=== PATIENT | female | born 1985 | race Caucasian/White ===

== ENCOUNTER 2023-03-26 18:04 | Emergency (ER) | payer MEDICAID, SELFPAY ==
[2023-03-26] VITALS (22 sets, daily range): BP systolic 90–118; BP diastolic 40–71; PULSE 55–77; RESP 6–24; TEMP 36.8; O2SAT 97–100
--- NOTE | 2023-03-26 18:15 | RT.EKG_ITS ---
APPROVED REPORT Exam: Resting ECG Reason for Exam: right arm pain/tingling Patient Location: E HR:63 bpm ECG Measurements Heart Rate 63 AXIS WY 137 P 46 QRSd 81 QRS 56 QT 427 T 50 QTc 439 Conclusion Sinus rhythm...normal P axis, V-rate 60- 99 sinus rhythm, normal axis, normal intervals non ischemic
--- NOTE | 2023-03-26 18:30 | DI.RAD_ITS ---
Exam(s) XR CHEST 2V PA LATERAL EXAM: XR CHEST 2V PA LATERAL CLINICAL HISTORY: chest pain, sob. TECHNIQUE: 2D digital imaging was performed. COMPARISON: No exams were available for comparison FINDINGS: 2 views: Heart size is normal. The mediastinum is not widened. Lungs are clear. No infiltrates nor pleural effusions. Thoracic scoliosis noted. IMPRESSION: No acute pulmonary findings. DATA REPOSITORY: RADIATION DOSE DELIVERED:
--- NOTE | 2023-03-26 18:44 | ED.GENADUL_ITS ---
Discharge Plan Disposition Patient Disposition: Home Condition: Stable Discharge Details Clinical Impression: Chest pain, non-cardiac Primary Care Provider: None,None ED Provider: Keren Schilling Home Meds and New Rx's Prescriptions: Continued ibuprofen 600 mg Tablet 600 mg PRN (Reason: Pain) Discharge Instructions Instructions: Chest Pain (ED), Hypokalemia (ED) Referrals: None,None [Primary Care Provider] - (Follow-up with your primary care provider) Discharge Data Discharge Date/Time-TO BE ENTERED AT DEPARTURE: 03/26/23 20:57 Medical Decision Making EKG obtained no acute ST segment changes symptoms do not seem consistent with ACS but will obtain routine lab including CBC CMP troponin and D-dimer. Her vital signs are stable we will give her aspirin 325 to chew and Toradol 30 mg IV push both for pain Labs reviewed symptoms improved she remains hemodynamically stable her chest pain is unlikely cardiac she should follow-up with primary care provider outpatient for further evaluation if needed Medical Records Medical records reviewed: Yes I reviewed the patient's medical records. Imaging Data Radiologic Study: Imaging: X-Ray (chest) Lab Data Lab results reviewed: Yes I reviewed the patient's lab results. Labs: Laboratory Tests Range/Units 03/26/23 03/26/23 03/26/23 18:50 18:50 18:50 WBC (4.4-10.8) 10^3/uL 7.39 RBC (3.93-5.22) 10^6/uL 4.36 Hgb (11.2-15.7) g/dL 12.2 Hct (36.0-46.0) % 38.4 MCV (80-95) fL 88 MCH (27.0-33.0) pg 28.0 MCHC (32.0-36.0) % 31.8 L RDW (11.7-14.6) % 13.3 Plt Count (130-400) 10^3/uL 269 MPV (8.0-11.0) fL 10.0 Immature Gran % 0.3 Neutrophils % 59.5 Lymphocytes % 28.7 Monocytes % 7.6 Eosinophils % 3.4 Basophils % 0.5 Nucleated RBC % (0.0-0.3) % 0.0 Absolute Neutrophils (1.2-6.7) 10^3/uL 4.40 Absolute Lymphocytes (1.2-3.4) 10^3/uL 2.12 Absolute Monocytes (0.1-0.8) 10^3/uL 0.56 Absolute Eosinophils (0.0-0.7) 10^3/uL 0.25 Absolute Basophils (0.0-0.2) 10^3/uL 0.04 D-Dimer Cancelled Sodium (136-145) mmol/L 142 Potassium (3.5-5.1) mmol/L 3.4 L Chloride (98-107) mmol/L 104 Carbon Dioxide (21.0-32.0) mmol/L 28.6 Anion Gap (3-11) mmol/L 9.4 BUN (7-18) mg/dL 13 Creatinine (0.55-1.02) mg/dL 0.9 Est GFR (CKD-EPI 2020) (mL/min/1.73m2) 83.40 Glucose (74-106) mg/dL 85 Calcium (8.5-10.1) mg/dL 8.9 Magnesium (1.8-2.4) mg/dL Total Bilirubin (0.2-1.0) mg/dL 0.3 AST (15-37) U/L 12 L ALT (14-59) U/L 15 Alkaline Phosphatase (46-116) U/L 64 Troponin I (<or=60) ng/L < 50 Total Protein (6.4-8.2) g/dL 7.9 Albumin (3.4-5.0) g/dL 3.9 Range/Units 03/26/23 03/26/23 18:50 19:10 WBC (4.4-10.8) 10^3/uL RBC (3.93-5.22) 10^6/uL Hgb (11.2-15.7) g/dL Hct (36.0-46.0) % MCV (80-95) fL MCH (27.0-33.0) pg MCHC (32.0-36.0) % RDW (11.7-14.6) % Plt Count (130-400) 10^3/uL MPV (8.0-11.0) fL Immature Gran % Neutrophils % Lymphocytes % Monocytes % Eosinophils % Basophils % Nucleated RBC % (0.0-0.3) % Absolute Neutrophils (1.2-6.7) 10^3/uL Absolute Lymphocytes (1.2-3.4) 10^3/uL Absolute Monocytes (0.1-0.8) 10^3/uL Absolute Eosinophils (0.0-0.7) 10^3/uL Absolute Basophils (0.0-0.2) 10^3/uL D-Dimer 352 Sodium (136-145) mmol/L Potassium (3.5-5.1) mmol/L Chloride (98-107) mmol/L Carbon Dioxide (21.0-32.0) mmol/L Anion Gap (3-11) mmol/L BUN (7-18) mg/dL Creatinine (0.55-1.02) mg/dL Est GFR (CKD-EPI 2020) (mL/min/1.73m2) Glucose (74-106) mg/dL Calcium (8.5-10.1) mg/dL Magnesium (1.8-2.4) mg/dL 2.1 Total Bilirubin (0.2-1.0) mg/dL AST (15-37) U/L ALT (14-59) U/L Alkaline Phosphatase (46-116) U/L Troponin I (<or=60) ng/L Total Protein (6.4-8.2) g/dL Albumin (3.4-5.0) g/dL ECG Data Attestation: I personally reviewed and interpreted this ECG (s) as follows: (NSR, no acute st segment changes) HPI General Mode of arrival: ambulatory . Date/Time Provider Initiated Documentation: 03/26/23 18:28 . Limitations to Documentation: no limitations . Information obtained by: patient . HPI Narrative: Presents with complaints of substernal chest pain with left arm numbness and tingling. Denies any similar history. No aggravating or alleviating factors. Did try ibuprofen this morning but mostly for complaints of a headache. States she does not feel it helped her symptoms. Does say she has been having a lot of stress. Related Data Home Medications Medication Instructions Recorded Confirmed ibuprofen 600 mg tablet 600 mg PRN Pain 03/26/23 Allergies Allergy/AdvReac Type Severity Reaction Status Date / Time codeine Allergy Mild Nausea Verified 03/26/23 18:32 General Stated Complaint: Chest Pain MICKY: 3 Review of Systems All systems reviewed & are unremarkable except as noted in HPI and below PFSH All Active Problems (Updated 03/26/23 @ 20:27 by Keren Schilling NP) Chest pain, non-cardiac (Acute) Social History Smoking/Tobacco Use Status: Never Smoking risk assessment performed?: Yes Alcohol Intake: current Alcohol Intake frequency: holidays/special occasions only Alcohol type: hard liquor Drug use: Never Substance use type: does not use Housing: house Do you feel safe at home: Yes Do you feel safe in your relationship?: Yes Course Vital Signs Vital signs: Vital Signs Temperature 36.8 C 03/26/23 18:08 Pulse 77 03/26/23 18:08 Respiratory Rate 18 03/26/23 18:08 Blood Pressure 114/71 03/26/23 18:08 Pulse Oximetry 100 03/26/23 18:08 Temperature 36.8 C 03/26/23 18:08 Temperature Source Tympanic 03/26/23 18:08 Pulse 77 03/26/23 18:08 Respiratory Rate 18 03/26/23 18:08 Blood Pressure 114/71 03/26/23 18:08 Blood Pressure Position Sitting 03/26/23 18:08 Pulse Oximetry 100 03/26/23 18:08 Oxygen Delivery Method Room Air 03/26/23 18:08 Oxygen Flow Rate 0 03/26/23 18:08
[2023-03-26] MEDS: Aspirin 81 MG CHEW 324 MG CH (18:46)
[2023-03-26] MEDS: Ketorolac 30 MG/ML VIAL IVP (18:47)
[2023-03-26 18:56] LABS: Abs Immature Grans 0.02 10^3/uL (0.0-0.06); Absolute Basophil Count 0.04 10^3/uL (0.0-0.2); Absolute Eosinophil Count 0.25 10^3/uL (0.0-0.7); Absolute Lymphocyte Count 2.12 10^3/uL (1.2-3.4); Absolute Monocyte Count 0.56 10^3/uL (0.1-0.8); Basophils % 0.5; Eosinophils % 3.4; HCT 38.4 % (36.0-46.0); HGB 12.2 g/dL (11.2-15.7); Immature Grans % 0.3; Lymphocytes % 28.7; MCHC 31.8 % (32.0-36.0); MCV 88 fL (80-95); Monocytes % 7.6; Neutrophils % 59.5; Platelet Count 269 10^3/uL (130-400); RBC 4.36 10^6/uL (3.93-5.22); RDW 13.3 % (11.7-14.6); RDW-SD 43.5 fL; WBC 7.39 10^3/uL (4.4-10.8)
[2023-03-26 19:17] LABS: ALT 15 U/L (14-59); AST 12 U/L (15-37); Albumin 3.9 g/dL (3.4-5.0); Alkaline Phosphatase 64 U/L (46-116); Anion Gap 9.4 mmol/L (3-11); BUN 13 mg/dL (7-18); Bilirubin, Total 0.3 mg/dL (0.2-1.0); CO2 28.6 mmol/L (21.0-32.0); CREATININE 0.9 mg/dL (0.55-1.02); Calcium 8.9 mg/dL (8.5-10.1); Chloride 104 mmol/L (98-107); Glucose 85 mg/dL (74-106); Potassium 3.4 mmol/L (3.5-5.1); Sodium 142 mmol/L (136-145); Total Protein 7.9 g/dL (6.4-8.2); Troponin I < 50 ng/L (<or=60)
[2023-03-26] MEDS: Potassium Chloride 20 MEQ TABCR 40 MEQ PO (19:35)
--- NOTE | 2023-03-26 19:49 | DI.VRAD_ITS ---
PROCEDURE INFORMATION: Exam: XR Chest Exam date and time: 03/26/2023 7:20 PM Age: 38 years old Clinical indication: Other: Chest pain and shortness of breath TECHNIQUE: Imaging protocol: Radiologic exam of the chest. Views: 2 views. COMPARISON: No relevant prior studies available. FINDINGS: Lungs: Normal. Pleural spaces: Unremarkable. No pleural effusion. No pneumothorax. Heart/Mediastinum: Normal. Bones/joints: Mild levoscoliosis of the upper thoracic spine. IMPRESSION: No acute cardiopulmonary abnormality. Dictated and Authenticated by: Edward Verduzco MD. Ordering:DARIO Veliz MD
[2023-03-26 19:50] LABS: D-Dimer 352 ng/mlFEU (<500)
[2023-03-26 19:52] LABS: Magnesium 2.1 mg/dL (1.8-2.4)
== END 2023-03-26 20:57 | disposition home or self-care (01) ==
PROVIDERS: Emergency Provider Nurse Practitioner Acute Care
DX: R07.9 Chest pain, unspecified (principal); R11.0 Nausea; E87.6 Hypokalemia
CPT/HCPCS: 36415; 80053; 81025; 93005; 99284; 71046; 83735; 84484; 85025; 85379; 93010; 99283; J1885

== ENCOUNTER 2023-06-21 13:55 | Outpatient (REF) | payer MEDICAID, SELFPAY | END 2023-06-21 13:56 | disposition home or self-care (01) | LOC: LBN 13:55 | PROVIDERS: Visit Provider Physician Assistant | DX: J02.9 Acute pharyngitis, unspecified (principal) | CPT/HCPCS: 87070 ==

== ENCOUNTER 2023-12-14 15:08 | Emergency (ER) | payer MEDICAID, SELFPAY ==
[2023-12-14 15:28] VITALS: BP 112/57; PULSE 90; RESP 18; TEMP 37.1; O2SAT 100
[2023-12-14] MEDS: Acetaminophen 325 MG TAB 650 MG PO (15:52)
[2023-12-14] MEDS: Lidocaine/Epinephri/Tetracaine Topical Gel 3 ML TP (15:53)
[2023-12-14] MEDS: Tetanus & Diphtheria Tox,ADULT 0.5 ML VIAL IM (15:53)
--- NOTE | 2023-12-14 16:31 | ED.GENADUL_ITS ---
Discharge Plan Disposition Patient Disposition: Home Discharge Details Clinical Impression: Finger laceration Primary Care Provider: Unknown,Unknown ED Provider: Gertrude Jarvis Home Meds and New Rx's Prescriptions: No Action ibuprofen 600 mg Tablet 600 mg PRN (Reason: Pain) Discharge Instructions Instructions: Finger Laceration (ED) Additional Instructions: Wash your finger daily with antibacterial soap and water. Use the finger splint at all times to help keep your finger in full extension so as to keep the edges of the wound together. Do not apply any ointments, as this may degrade the glue. Do not soak the finger in water. Keeping out for signs of infection such as redness, swelling, pus drainage, increasing pain, foul odor. If you notice any of these return to care as this may indicate need for antibiotics. HPI General Date/Time Provider Initiated Documentation: 12/14/23 15:22 . HPI Narrative: Catina is a 38-year-old female presents to the emergency department today for evaluation of laceration to her left index finger. She reports that she was using X-Acto knife to cut the support off of a package. She was able to control bleeding with pressure. Denies distal numbness/tingling, other injuries. No significant past medical history such as immunocompromise/diabetes, bleeding disorders. Not sure when she last had her tetanus, is agreeable to having 1 today. Related Data Home Medications Medication Instructions Recorded Confirmed ibuprofen 600 mg tablet 600 mg PRN Pain 03/26/23 06/21/23 Allergies Allergy/AdvReac Type Severity Reaction Status Date / Time codeine Allergy Mild Nausea Verified 12/14/23 15:30 General Stated Complaint: Laceration MICKY: 3 Review of Systems Narrative: see HPI Exam Const General: cooperative, healthy appearing, comfortable and no acute distress Resp Effort & Inspection: normal respiratory effort and able to speak in complete sentences Extrem Left upper extremity: full ROM, normal capillary refill and hand Details: tendon exam normal, normal ROM of fingers and laceration 2nd digit dorsal aspect central Details: linear (1 cm), involving subcutaneous tissue and with motor nerve function intact; no pulsatile bleeding, no foreign body present and not contaminated; no unusual warmth, no swelling and no foreign bodies Course Vital Signs Vital signs: Vital Signs Temperature 37.1 C 12/14/23 15:28 Pulse 90 12/14/23 15:28 Respiratory Rate 18 12/14/23 15:28 Blood Pressure 112/57 L 12/14/23 15:28 Pulse Oximetry 100 12/14/23 15:28 Temperature 37.1 C 12/14/23 15:28 Pulse 90 12/14/23 15:28 Respiratory Rate 18 12/14/23 15:28 Respiratory Effort Normal, Non-Labored 12/14/23 15:30 Blood Pressure 112/57 L 12/14/23 15:28 Blood Pressure Position Sitting 12/14/23 15:28 Pulse Oximetry 100 12/14/23 15:28 Oxygen Delivery Method Room Air 12/14/23 15:28 Oxygen Flow Rate 0 12/14/23 15:28 Pain Level 8 12/14/23 15:28 Procedures Laceration Laceration 1: Site: hand Side (If applicable): left Size (cm): 1 Description: linear Depth: simple, single layer Local Anesthetic: other anesthetic (LET) Pre-repair: wound explored, irrigated extensively and deep structures intact Skin layer closed with: other (dermabond) Medical Decision Making Catina is a 38-year-old female presents to the emergency department today for evaluation of laceration to her left index finger. She reports that she was using X-Acto knife to cut the support off of a package. She was able to control bleeding with pressure. Denies distal numbness/tingling, other injuries. No significant past medical history such as immunocompromise/diabetes, bleeding disorders. Not sure when she last had her tetanus, is agreeable to having 1 today. Physical exam very reassuring. 1 cm linear well-approximated laceration noted to the left index finger at middle phalange, no active bleeding at this time. Full painless range of motion to finger after topical anesthetic applied. Brisk cap refill. No other injuries. Wound was irrigated extensively with tap water, cleansed with ChloraPrep, and approximated edges with Dermabond. Nonstick dressing applied and finger splint used to maintain finger in extension. Reviewed discharge instructions with patient, including wound care and red flags indicating need for return to emergency care. Tdap given today Quality:SDOH Health Related Social Needs: No Data to Display PFSH All Active Problems (Updated 12/14/23 @ 16:39 by Gertrude Perla) Finger laceration (Acute) Social History Smoking/Tobacco Use Status: Never Smoking risk assessment performed?: Yes Alcohol Intake: current Alcohol Intake frequency: holidays/special occasions on ly Alcohol type: hard liquor Drug use: Never Substance use type: does not use Housing: house Do you feel safe at home: Yes Do you feel safe in your relationship?: Yes
== END 2023-12-14 16:43 | disposition home or self-care (01) ==
PROVIDERS: Emergency Provider Nurse Practitioner Family
DX: S61.211A Laceration without foreign body of left index finger without damage to nail, initial encounter (principal); W26.0XXA Contact with knife, initial encounter
CPT/HCPCS: 29130; 90471; 90714; 99283

== ENCOUNTER 2024-09-12 16:15 | Emergency (ER) | payer MEDICAID, SELFPAY ==
[2024-09-12 16:16] VITALS: BP 114/80; PULSE 98; RESP 15; TEMP 36.3; O2SAT 98
--- NOTE | 2024-09-12 16:23 | ED.GENADUL_ITS ---
Discharge Plan Disposition Patient Disposition: Home Condition: Stable Discharge Details Clinical Impression: Concussion Primary Care Provider: Unknown,Unknown ED Provider: Radha Ragsdale Home Meds and New Rx's Prescriptions: New ondansetron 4 mg tablet,disintegrating 4 mg PO TID PRN3 Days Qty: 9 0RF Continued ibuprofen 600 mg Tablet 600 mg PO Q8H PRN (Reason: Pain) amitriptyline 10 mg tablet 10 mg PO DAILY Patient Comments: TAKE ONE TABLET BY MOUTH AT BEDTIME bupropion HCl 300 mg tablet extended release 24 hr 300 mg PO DAILY Patient Comments: TAKE ONE TABLET BY MOUTH EVERY DAY Discharge Instructions Instructions: Concussion, Adult ED Additional Instructions: Please follow-up with primary care physician 1 week for reassessment Take Zofran as needed for nausea and vomiting, ibuprofen and Tylenol for supportive care Please return earlier should you have worsening headache, dizziness, uncontrolled nausea or vomiting, or should any new concerns arise HPI General Date/Time Provider Initiated Documentation: 09/12/24 16:23 . HPI Narrative: The patient is a 39-year-old female who presents for evaluation of a concussion. She is accompanied by her fianc?. Two days ago, she sustained a concussion after hitting her head on the corner of a shelf. The impact occurred when she bent over and snapped her head slightly. She reports experiencing dizziness, nausea, and difficulty moving her head in any direction. She has been experiencing excessive sleepiness since the incident. She did not lose consciousness during the event. Her symptoms began shortly after the incident. She reports no vomiting but mentions an episode of near-vomiting this morning. She reports no possibility of . She reports no tinnitus or chest pain. She experiences both lightheadedness and dizziness. She has not taken any analgesics today. She has a small scrape on her forehead from the incident. She reports no use of tobacco, alcohol, or illicit drugs. She reports no history of concussions. She reports no shortness of breath. She has a history of headaches and dizziness. She visited a neurologist yesterday morning at [facility]. During the visit, she performed a test where she put her chin to her chest, closed her eyes, and then opened them, almost falling over. She also had difficulty walking in a straight line, although the neurologist reported normal test results. She did not mention her recent head injury during that visit. She has a history of depression and anxiety. She is currently taking bupropion and amitriptyline. She reports no use of blood thinners. She reports chronic neck pain, which she attributes to her anxiety. Supplemental Information She reports blurry vision, which she attributes to not wearing her glasses. Related Data Home Medications ?Medication ?Instructions ?Recorded ?Confirmed ibuprofen 600 mg tablet 600 mg PO Q8H PRN Pain 03/26/23 09/12/24 amitriptyline 10 mg tablet 10 mg PO DAILY 09/12/24 09/12/24 bupropion HCl 300 mg 24 hr tablet, 300 mg PO DAILY 09/12/24 09/12/24 extended release ondansetron 4 mg disintegrating 4 mg PO TID PRN 3 days #9 tabs 09/12/24 tablet Previous Rx's ?Medication ?Instructions ?Recorded ondansetron 4 mg disintegrating 4 mg PO TID PRN 3 days #9 tabs 09/12/24 tablet Allergies Allergy/AdvReac Type Severity Reaction Status Date / Time codeine Allergy Mild Nausea Verified 09/12/24 16:19 General Stated Complaint: HeadInjury MICKY: 3 Exam Narrative Exam Narrative: General Appearance: The patient is alert, oriented, and shows no signs of acute distress. Vital signs: Within normal limits. HEENT: Pupils are equal, round, and reactive to light and accommodation. An abrasion is noted on the forehead with no significant bruising. There is no hemotympanum. Respiratory: Within normal limits. Back, Musculoskeletal: Mild paraspinal tenderness is present in the neck. No midline cervical spine tenderness is detected. Skin: Warm and dry, no rash. Neurological: [place] Coma Scale score is 15. The patient is ambulatory with a steady gait. Cranial nerves II through XII are intact. The patient is able to speak in complete sentences. Course Vital Signs Vital signs: Vital Signs Temperature 36.3 C L 09/12/24 16:16 Pulse 98 H 09/12/24 16:16 Respiratory Rate 15 09/12/24 16:16 Blood Pressure 114/80 09/12/24 16:16 Pulse Oximetry 98 09/12/24 16:16 Temperature 36.3 C L 09/12/24 16:16 Pulse 98 H 09/12/24 16:16 Respiratory Rate 15 09/12/24 16:16 Respiratory Effort Normal 09/12/24 16:20 Blood Pressure 114/80 09/12/24 16:16 Blood Pressure Position Sitting 09/12/24 16:16 Pulse Oximetry 98 09/12/24 16:16 Oxygen Delivery Method Room Air 09/12/24 16:16 Oxygen Flow Rate 0 09/12/24 16:16 Medical Decision Making Initial Assessment: 39-year-old female presenting with symptoms of concussion, including dizziness, nausea, and headache following a head injury 2 days ago. Differential Diagnosis: - Concussion: Clinical diagnosis based on symptoms and mechanism of injury. Plan includes supportive care and symptom management. - Sinusitis: Incidental finding on CT scan, not associated with symptoms or tenderness. No specific treatment required. ED Course: - CT scan of the head performed, read by me, showing no acute abnormalities but incidental finding of sinusitis. - Administered 4 mg of Zofran for nausea. - Provided Motrin or Tylenol for headache relief. - Advised supportive care including rest, limited reading, phone use, and computer use. - Recommended avoiding driving, climbing ladders, working at heights, and caution on slippery surfaces. - Encouraged reevaluation in 1 week if symptoms persist. Final Assessment: Patient evaluated for concussion with a CT scan showing no acute abnormalities. Treatment includes supportive care, symptom management, and activity limitations. Incidental finding of sinusitis noted without symptoms. Clinical Impression: - Concussion - Nausea - Headache - Anxiety and depression - Chronic neck pain Disposition: - Discharge - Follow-Up: Reevaluation in 1 week if symptoms persist. Patient Education: Advised on supportive care measures, activity limitations, an d return precautions. Patient expressed understanding. MDM Components Evaluation: - Number of Differential Diagnoses or Management Options: Concussion, Sinusitis - Amount and Complexity of Data Reviewed: CT scan of the head, physical examination - Risk of Complication and Morbidity or Mortality: Low risk based on CT scan results and clinical presentation. Quality:SDWI Health Related Social Needs: No Data to Display PFSH All Active Problems (Updated 09/12/24 @ 17:47 by MATTHIEU Byrd) Concussion (Acute) Social History Smoking/Tobacco Use Status: Never Smoking risk assessment performed?: Yes Alcohol Intake: current Alcohol Intake frequency: holidays/special occasions only Alcohol type: hard liquor Drug use: Never Substance use type: does not use Housing: house Do you feel safe at home: Yes Do you feel safe in your relationship?: Yes
--- NOTE | 2024-09-12 16:30 | DI.CT_ITS ---
Exam(s) CT HEAD WO EXAM: CT HEAD WO CLINICAL HISTORY: HI, dizzy, nausea. TECHNIQUE: Imaging Protocol: Axial computed tomography images with coronal and sagittal reformatted images were created and reviewed COMPARISON: No exams were available for comparison FINDINGS: There are no skull fractures. There is a fluid level in left maxillary sinus consistent with sinusiti s. Right maxillary sinus is clear as are the other paranasal sinuses and mastoid air cells. The fro ntal sinuses are hypoplastic/underdeveloped. There is no evidence of intracranial hemorrhage, mass effect, or shift of midline structures. There are no extra-axial fluid collections. The ventricles are not enlarged or shifted and there is no blo od within the ventricular system nor within the basal cisterns. IMPRESSION: No acute intracranial findings on this noninfused CT scan of the brain. Left maxillary sinusitis. Report called by myself to ER 09/12/2024 at 5:28 p.m. RADIATION DOSE DELIVERED: 854.5mGy.cm Total DLP DATA REPOSITORY: All CT scans at this facility are submitted to the National Radiology Data Registry (NRDR) Dose Index Registry (DIR) with the [employer] ([employer]). RADIATION OPTIMIZATION: All CT scans at this facility use at least one of these dose optimization te chniques: automated exposure control; mA and/or kV adjustment per patient size (includes targeted exa ms where dose is matched to clinical indication); or iterative reconstruction.
[2024-09-12] MEDS: Acetaminophen 500 MG TAB 1000 MG PO (16:56)
[2024-09-12] MEDS: Prochlorperazine 10 MG TAB PO (16:57)
[2024-09-12 18:18] VITALS: BP 103/51; PULSE 81; RESP 16; O2SAT 100
== END 2024-09-12 18:19 | disposition home or self-care (01) ==
PROVIDERS: Emergency Provider Physician Assistant
DX: S06.0X0A Concussion without loss of consciousness, initial encounter (principal); W22.03XA Walked into furniture, initial encounter; F41.9 Anxiety disorder, unspecified; F32.A Depression, unspecified
CPT/HCPCS: 81025; 99284; 70450

== ENCOUNTER 2024-12-28 17:48 | Outpatient (REF) | payer MEDICAID, SELFPAY ==
[2024-12-28 17:56] LABS: Bilirubin Negative (Negative); Blood Negative (Negative); Clarity Clear (Clear); Glucose Negative (Negative); Ketones Negative (Negative); Leukocyte Esterase Negative (Negative); Nitrite Negative (Negative); Specific Gravity 1.015 (1.005-1.025); Urobilinogen 0.2 mg/dL (Up to 0.2); pH 8.5 (5-8)
[2024-12-30 12:14] LABS: Chlamydia Result Negative (Negative); GC Result Negative (Negative)
== END 2024-12-28 17:49 | disposition home or self-care (01) ==
LOC: LBN 17:48
PROVIDERS: PCP Nurse Practitioner Family; Visit Provider Physician Assistant
DX: R35.0 Frequency of micturition (principal); N89.8 Other specified noninflammatory disorders of vagina; R30.0 Dysuria
CPT/HCPCS: 87491; 87591; 81003; 87480; 87510; 87660